=== PATIENT | female | born 1970 | race African-American/Black ===

== ENCOUNTER 2023-01-15 23:42 | Emergency (ER) | payer MEDICARE, MEDICAID ==
[2023-01-16] MEDS ORDERED: Fluorescein Opthalmic Strip ONE (01:49)
[2023-01-16] MEDS ORDERED: Proparacaine 0.5% Opth 15 ML BOT ONE (01:50)
== END 2023-01-16 02:37 | disposition home or self-care (01) ==
LOC: ERS 23:42
DX: H57.12 Ocular pain, left eye (principal); I10 Essential (primary) hypertension; E78.5 Hyperlipidemia, unspecified; E11.9 Type 2 diabetes mellitus without complications; E03.9 Hypothyroidism, unspecified; Z86.73 Personal history of transient ischemic attack (TIA), and cerebral infarction without residual deficits; Z87.891 Personal history of nicotine dependence
CPT/HCPCS: 99283